=== PATIENT | female | born 1960 | race African-American/Black ===

== ENCOUNTER → 2016-09-25 | Outpatient (CLI) | payer OTHER ==
--- NOTE | 2016-09-25 10:27 | RAD ---
Indication: Right knee pain and arthritis. Time of exam 10:18 AM 2 views of the right knee demonstrate fairly significant tricompartmental degenerative change with joint space narrowing and marginal osteophyte formation. No fracture, dislocation or effusion is seen. Impression: Tricompartment degenerative change. No acute bony abnormality is detected.
== END | disposition home or self-care (01) ==
LOC: RAD 09:42
PROVIDERS: ATTEND Neuromusculoskeletal Medicine, Sports Medicine
DX: M17.11 Unilateral primary osteoarthritis, right knee (principal)
CPT/HCPCS: 73560